=== PATIENT | female | born 1995 | race Caucasian/White ===

== ENCOUNTER → 2017-05-02 | Outpatient (CLI) | payer OTHER ==
[2017-05-04 01:27] LABS: CHLAMYDIA TRACH RNA*** NOT DETECTED (NOT DETECTED); GC (NEIS GONORRHOEAE)RNA** NOT DETECTED (NOT DETECTED)
== END | disposition home or self-care (01) ==
LOC: C.LABSPEC 11:24
PROVIDERS: ATTEND Physician Assistant
DX: Z01.419 Encounter for gynecological examination (general) (routine) without abnormal findings (principal)

== ENCOUNTER → 2017-05-02 | Outpatient (CLI) | payer OTHER | END | disposition home or self-care (01) | LOC: C.PAPS 11:11 | PROVIDERS: ATTEND Physician Assistant | DX: Z12.4 Encounter for screening for malignant neoplasm of cervix (principal) ==

== ENCOUNTER 2023-04-08 00:28 | Inpatient (IN) ==
[2023-04-08] MEDS ORDERED: LIDOCAINE 1% LOCAL 20 ML VIAL INFIL PRN (01:07)
[2023-04-08] MEDS ORDERED: OXYTOCIN 30 UNITS/500 ML BAG IV PRN ×3 (01:07→19:54)
[2023-04-08 01:25] LABS: Hematocrit (blood only) 38.5 % (37.0-47.0); Hemoglobin 12.9 g/dl (12.0-16.0); Mean Corpuscular Hemoglobin 29.8 pg (25.0-34.0); Mean Corpuscular Hgb Conc 33.5 g/dL (32.0-36.0); Mean Corpuscular Volume 88.9 fL (80.0-100.0); Platelet Count 161 K/uL (130-400); RDW Coefficient of Variation 12.4 % (11.5-14.5); RDW Standard Deviation 40.2 fL (36.4-46.3); Red Blood Count 4.33 M/uL (4.20-5.40); White Blood Count 14.81 K/ul (4.8-10.8)
--- NOTE | 2023-04-08 06:04 | History & Physical Report ---
Date of Service April 08, 2023 Assessment & Plan (1) 37 weeks gestation of : Plan: Patient was admitted overnight, routine labs Patient has made cervical change without any augmentation at this time Plan to start oxytocin if patient stalls out Epidural with patient request Anticipate spontaneous vaginal delivery (2) PROM (premature rupture of membranes): Plan: We will monitor for any signs or symptoms of infection, and treat accordingly (3) Depression affecting in third trimester, antepartum: Plan: We will continue to monitor at this time (4) Normal first confirmed, currently in third trimester: Admission and Anticipated Discharge Date Admission Date: April 08, 2023 History of Present Illness Chief Complaint: lof Primary Care Provider: NO PCP Patient is a 28-year-old G1, P0 at 37 weeks and 2 days dated by last menstrual period consistent with 7-week ultrasound who presented to labor and delivery overnight for premature rupture of membranes. States leaking of fluid happened at 10:15 PM on April 07, 2023. Notes scant bleeding. Denies regular contractions. Notes good movement. Denies headache, blurry vision, right upper quadrant epigastric pain. Otherwise feeling well has been complicated by class I obesity, depression and . No other complications Allergies Allergy/AdvReac Type Severity Reaction Status Date / Time Penicillins Allergy Unknown Rash Verified 04/08/23 00:50 Home Medications Medication Instructions Recorded Confirmed Type fluoxetine 40 mg capsule (Prozac) 40 mg PO DAILY 07/25/19 04/08/23 History Patient History Medical History Depression with anxiety Surgical History [place] teeth extracted Family History Father Left nephrolithiasis Family/Other Left nephrolithiasis Colorectal cancer maternal great grandmother Depression with anxiety sibling Grandmother (Paternal) Diabetes Mother Hypertension Denies family history of Ovarian cancer Breast cancer Social History Smoking Status: Never smoker Do You Dip or Chew Tobacco: No; Hx Alcohol Use: Yes Hx Substance Use: No Preferred Language: Maltese Communication Ability: Effective 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 Beliefs That Will Affect Care: None marital status: Current Living Situation: Spouse Other Information That Helps Us Care for You: No Feels Safe at Home: Yes Safety Concerns: Feels Safe At This Time OB History Primigravida PROSTHETIST History Denies history of STDs See record Physical Exam Constitutional: WD/WN, vitals as above Respiratory: normal respiratory effort, lungs clear to auscultation Cardiovascular: RRR, no murmur, no edema Gastrointestinal (Abdomen): normal bowel sounds, soft, nontender, no hepatosplenomegaly Gravid Jesse's estimated weight 3400 g Cephalic Genitourinary: Patient was grossly ruptured on exam and was checked by nursing and found to be 1 to 2 cm Rechecked at 6:10 AM and found to be 3/60/-1 Results & Data Vital Signs (Past 12 Hours) Vital Signs Temp Pulse Resp BP 04/08/23 03:04 36.8 C 103 H 18 108/69 04/08/23 00:59 36.7 C 98 H 18 130/76 Laboratory Results Laboratory Results WBC 14.81 K/ul (4.8-10.8) H 04/08/23 01:14 RBC 4.33 M/uL (4.20-5.40) 04/08/23 01:14 Hgb 12.9 g/dl (12.0-16.0) 04/08/23 01:14 Hct 38.5 % (37.0-47.0) 04/08/23 01:14 MCV 88.9 fL (80.0-100.0) 04/08/23 01:14 MCH 29.8 pg (25.0-34.0) 04/08/23 01:14 MCHC 33.5 g/dL (32.0-36.0) 04/08/23 01:14 RDW Std Deviation 40.2 fL (36.4-46.3) 04/08/23 01:14 RDW Coeff of Ramon 12.4 % (11.5-14.5) 04/08/23 01:14 Plt Count 161 K/uL (130-400) 04/08/23 01:14 MPV 12.0 fL (9.4-12.4) 04/08/23 01:14 Monitoring External Monitor heart tracing: Baseline 100 [place] variability, positive accelerations, no decelerations, category 1 tracing Tocodynamometer Irregular contractions
[2023-04-08] MEDS ORDERED: FLUoxetine HCL 20 MG CAP PO SCH (09:00)
[2023-04-08] MEDS: LACTATED RINGER'S 1,000 ML IV PRN ×2 (10:14→15:11)
--- NOTE | 2023-04-08 10:24 | Labor Progress Brief Note ---
Date of Service April 08, 2023 Assessment & Plan Admission and Anticipated Discharge Date Admission Date: April 08, 2023 Physical Exam Genitourinary: Manual OB Exam: + cervical dilation 3 cm, + cervical effacement 70%, + station -2 and + amniotic fluid clear OB Exam Monitor Tracing: + external FHT monitor used, + external uterine monitor used, + category I and + normal FHT variability will start Oxytocin to augment contractions EFW 7.5 lbs. Results & Data Vital Signs (Past 12 Hours) Vital Signs Temp Pulse Resp BP 04/08/23 07:11 20 04/08/23 07:10 36.9 C 93 H 114/75 04/08/23 10:14 90 120/74 04/08/23 08:51 36.9 C 04/08/23 07:08 93 H 114/75 04/08/23 03:04 36.8 C 103 H 18 108/69 04/08/23 00:59 36.7 C 98 H 18 130/76
[2023-04-08] MEDS ORDERED: fentaNYL citrate PF 100 MCG/2 ML VIAL ONE (12:16)
[2023-04-08] MEDS ORDERED: ePHEDrine sulfate 50 MG/ML AMP ONE (12:16)
[2023-04-08] MEDS ORDERED: SODIUM CHLORIDE 0.9% PF INJ 10 ML VIAL ONE (12:16)
[2023-04-08] MEDS ORDERED: fentaNYL 2MCG/ML ROPIVACAINE 1.25MG/ML 100 ML BAG EPI ONE (12:17)
[2023-04-08] MEDS ORDERED: LIDOCAINE 2%/EPINEPHRINE 1:200,000 20 ML PF ONE (12:17)
[2023-04-08] MEDS ORDERED: BUPIVACAINE 0.25% PF 30 ML VIAL ONE (12:17)
[2023-04-08] MEDS ORDERED: NALBUPHINE HCL INJ 10 MG/ML AMP IV PRN (12:43)
[2023-04-08] MEDS ORDERED: ROPIVACAINE 0.5% PF 5 MG/ML 20 ML VIAL EPI PRN (12:43)
[2023-04-08] MEDS ORDERED: BUPIVACAINE 0.25% PF 30 ML VIAL EPI STA (12:43)
[2023-04-08] MEDS ORDERED: fentaNYL citrate PF 100 MCG/2 ML VIAL EPI PRN (12:43)
[2023-04-08] MEDS ORDERED: fentaNYL citrate PF 100 MCG/2 ML VIAL EPI STA (12:43)
[2023-04-08] MEDS ORDERED: SODIUM CHLORIDE 0.9% PF INJ 10 ML VIAL EPI PRN (12:43)
[2023-04-08] MEDS ORDERED: LIDOCAINE 2%/EPINEPHRINE 1:200,000 20 ML PF EPI STA (12:43)
[2023-04-08] MEDS ORDERED: diphenhydrAMINE 50 MG/ML VIAL IV PRN (12:43)
[2023-04-08] MEDS ORDERED: LIDOCAINE 2% MPF LOCAL 5 ML VIAL EPI PRN (12:43)
[2023-04-08] MEDS ORDERED: NALOXONE HCL 0.4 MG/1 ML VIAL/CARP IV PRN (12:43)
[2023-04-08] MEDS ORDERED: ONDANSETRON INJ 2 MG/ML 2 ML VIAL IV PRN (12:43)
[2023-04-08] MEDS ORDERED: BUPIVACAINE 0.25% PF 30 ML VIAL EPI PRN (12:43)
[2023-04-08] MEDS ORDERED: fentaNYL 2MCG/ML ROPIVACAINE 1.25MG/ML 100 ML BAG EPI PRN (12:43)
[2023-04-08] MEDS ORDERED: SODIUM CHLORIDE 0.9% PF INJ 10 ML VIAL EPI STA (12:43)
[2023-04-08] MEDS ORDERED: ePHEDrine sulfate 50 MG/ML AMP IV PRN (12:43)
[2023-04-08] MEDS ORDERED: NALOXONE HCL 1 MG in SODIUM CHLORIDE 0.9% 1,000 ML IV PRN (12:43)
--- NOTE | 2023-04-08 12:45 | Anesthesiology Consultation ---
Date of Service April 08, 2023 Assessment & Plan Chart Review Chart Review: Acceptable Risk for Labor Epidural Consults Requested none ASA ASA2 Proposed Anesthesia Anesthesia Type: Labor Epidural Risk / Benefits Reviewed With: PT / POA / Parent / Guardian, Accepts Plan and Informed Consent Obtained History Height/Weight Height: 5 ft 7 in Weight: 97.069 kg Allergies Allergy/AdvReac Type Severity Reaction Status Date / Time Penicillins Allergy Unknown Rash Verified 04/08/23 00:50 Medications Home Medications Medication Instructions Recorded Confirmed Last Taken fluoxetine 40 mg capsule (Prozac) 40 mg PO DAILY 07/25/19 04/08/23 04/07/23 21:00 Active Medications Generic Name Dose Route Start Last Admin Trade Name Freq PRN Reason Stop Dose Admin Lactated Ringer's 1,000 mls @ 125 mls/hr 04/08/23 01:07 04/08/23 12:15 Lr IV 04/10/23 01:06 999 mls/hr .Q8H PRN Infusion L&D Protocol Protocol Oxytocin 30 units in 500 mls @ 7 mls/hr 04/08/23 10:22 04/08/23 12:15 Pitocin IV 04/10/23 10:21 0.42 units/hr .Q24H PRN 7 mls/hr Labor Induction/Augmentation Titration Protocol 0.42 UNITS/HR Past Medical History Medical History Depression with anxiety Exercise / Class Metabolic Activity II 4-5 Yardwork/Stairs/Walk up hill Past Family History Family History Father Left nephrolithiasis Family/Other Left nephrolithiasis Colorectal cancer maternal great grandmother Depression with anxiety sibling Grandmother (Paternal) Diabetes Mother Hypertension Denies family history of Ovarian cancer Breast cancer Past Surgical History Surgical History [place] teeth extracted Past Anesthesia History No Hx of Anesthesia Complications and No Family Hx of Anesthesia Complications History of PONV No Hx of PONV and No Hx of Motion Sickness Social History Smoking Status: Never smoker Do You Dip or Chew Tobacco: No Hx Alcohol Use: Yes Hx Substance Use: No Physical Exam Vital Signs Last Vital Signs Temp 98.4 F 04/08/23 12:30 Pulse 104 H 04/08/23 12:14 Resp 18 04/08/23 12:30 BP 120/78 04/08/23 12:14 ENMT Mouth: no dentition abnormality Thyromental Distance: > or= 3.5 Finger Breadths Mallampati Class: II Neck normal visual inspection Respiratory normal respiratory effort Auscultation: lungs clear to auscultation bilaterally Cardiovascular Rate/Rhythm: regular rate and regular rhythm Testing Laboratory Results 04/08/23 01:14
[2023-04-08] MEDS ORDERED: NURSING L&D Epidural Breakthrough Pain Update ONE (14:07)
--- NOTE | 2023-04-08 14:33 | Labor Progress Brief Note ---
Date of Service April 08, 2023 Assessment & Plan Admission and Anticipated Discharge Date Admission Date: April 08, 2023 Physical Exam Genitourinary: Manual OB Exam: + cervical dilation 3 cm, + cervical effacement 80% and + station -2 OB Exam Monitor Tracing: + external FHT monitor used, + external uterine monitor used, + category I and + normal FHT variability Results & Data Vital Signs (Past 12 Hours) Vital Signs Temp Pulse Resp BP Pulse Ox 04/08/23 07:11 20 04/08/23 07:10 36.9 C 93 H 114/75 04/08/23 14:31 82 124/64 04/08/23 14:27 94 H 100 04/08/23 14:22 99 H 99 04/08/23 14:17 97 H 100 04/08/23 14:16 95 H 121/64 04/08/23 14:12 85 100 04/08/23 14:07 89 100 04/08/23 14:02 102 H 125/76 97 04/08/23 14:01 88 122/75 04/08/23 13:57 87 100 04/08/23 13:52 90 99 04/08/23 13:47 95 H 100 04/08/23 13:46 83 118/70 04/08/23 13:42 88 99 04/08/23 13:37 87 97 04/08/23 13:32 89 97 04/08/23 13:30 18 04/08/23 13:30 18 04/08/23 13:28 91 H 122/67 04/08/23 13:25 20 04/08/23 13:25 20 04/08/23 13:27 85 98 04/08/23 13:23 89 122/62 04/08/23 13:22 93 H 97 04/08/23 13:20 16 04/08/23 13:20 16 04/08/23 13:19 88 120/70 04/08/23 13:17 88 99 04/08/23 13:15 18 04/08/23 13:15 36.9 C 18 04/08/23 13:13 88 113/63 04/08/23 13:12 88 109/62 98 04/08/23 13:10 93 H 18 107/59 L 04/08/23 13:08 95 H 109/65 04/08/23 13:06 98 04/08/23 13:06 99 H 04/08/23 13:00 18 04/08/23 13:00 18 04/08/23 13:05 20 04/08/23 13:05 20 04/08/23 13:06 82 110/62 04/08/23 13:04 90 110/65 04/08/23 13:01 93 H 98 04/08/23 13:02 90 113/63 04/08/23 12:56 94 H 97 04/08/23 12:51 121 H 100 04/08/23 12:46 113 H 18 100 04/08/23 12:30 18 04/08/23 12:30 36.9 C 18 04/08/23 12:14 104 H 120/78 04/08/23 11:02 36.9 C 04/08/23 11:12 100 H 123/70 04/08/23 08:51 36.9 C 04/08/23 10:14 90 120/74 04/08/23 08:51 36.9 C 04/08/23 07:08 93 H 114/75 04/08/23 03:04 36.8 C 103 H 18 108/69
[2023-04-08] MEDS ORDERED: Nursing to Pharmacy Communication SCH (14:45)
--- NOTE | 2023-04-08 18:20 | Labor Progress Brief Note ---
Date of Service April 08, 2023 Assessment & Plan Admission and Anticipated Discharge Date Admission Date: April 08, 2023 Physical Exam Genitourinary: Manual OB Exam: + cervical dilation 10 cm, + cervical effacement 100%, + station 0 and + amniotic fluid clear OB Exam Monitor Tracing: + external FHT monitor used, + external uterine monitor used, + category I and + normal FHT variability Results & Data Vital Signs (Past 12 Hours) Vital Signs Temp Pulse Resp BP Pulse Ox 04/08/23 07:11 20 04/08/23 07:10 36.9 C 93 H 114/75 04/08/23 18:17 114 H 100 04/08/23 18:16 107 H 120/72 04/08/23 18:12 104 H 100 04/08/23 18:07 103 H 100 04/08/23 18:05 110 H 92 04/08/23 18:02 108 H 99 04/08/23 18:01 113 H 148/72 H 04/08/23 18:00 18 04/08/23 18:00 18 04/08/23 17:57 101 H 95 04/08/23 17:52 103 H 98 04/08/23 17:47 105 H 98 04/08/23 17:46 105 H 121/75 04/08/23 17:42 99 H 97 04/08/23 17:37 36.9 C 105 H 96 04/08/23 17:38 114 H 93 04/08/23 17:30 18 04/08/23 17:30 18 04/08/23 17:32 104 H 97 04/08/23 17:31 106 H 122/75 04/08/23 17:27 113 H 96 04/08/23 17:22 109 H 96 04/08/23 17:17 94 H 97 04/08/23 17:16 100 H 119/71 04/08/23 17:12 109 H 97 04/08/23 17:07 100 H 96 04/08/23 17:02 106 H 99 04/08/23 17:01 89 127/74 04/08/23 17:00 16 04/08/23 17:00 16 04/08/23 16:57 112 H 98 04/08/23 16:52 101 H 98 04/08/23 16:47 99 H 98 04/08/23 16:46 100 H 120/70 04/08/23 16:42 95 H 98 04/08/23 16:40 36.9 C 04/08/23 16:37 95 H 98 04/08/23 16:32 96 H 100 04/08/23 16:31 111 H 114/57 L 04/08/23 16:30 18 04/08/23 16:30 18 04/08/23 16:27 91 H 100 04/08/23 16:22 95 H 99 04/08/23 16:17 91 H 96 04/08/23 16:16 104 H 128/62 04/08/23 16:12 100 H 100 04/08/23 16:07 98 H 99 04/08/23 16:02 87 125/65 100 04/08/23 16:01 106 H 129/67 04/08/23 16:00 18 04/08/23 16:00 18 04/08/23 15:57 89 100 04/08/23 15:54 92 H 92 04/08/23 15:52 96 H 100 04/08/23 15:47 96 H 100 04/08/23 15:42 80 100 04/08/23 15:37 89 100 04/08/23 15:32 88 100 04/08/23 15:31 42 L 04/08/23 15:31 125/60 04/08/23 15:31 100 H 111/62 04/08/23 15:30 18 04/08/23 15:30 18 04/08/23 15:27 88 100 04/08/23 15:22 93 H 100 04/08/23 15:17 94 H 100 04/08/23 15:16 88 110/59 L 04/08/23 15:12 93 H 100 04/08/23 15:07 85 100 04/08/23 15:02 93 H 119/59 L 100 04/08/23 15:00 18 04/08/23 15:00 36.9 C 18 04/08/23 14:57 87 100 04/08/23 14:52 89 100 04/08/23 14:47 88 100 04/08/23 14:46 87 124/64 04/08/23 14:42 89 99 04/08/23 14:37 105 H 99 04/08/23 14:30 20 04/08/23 14:30 20 04/08/23 14:32 86 100 04/08/23 14:31 82 124/64 04/08/23 14:27 94 H 100 04/08/23 14:22 99 H 99 04/08/23 14:17 97 H 100 04/08/23 14:16 95 H 121/64 04/08/23 14:12 85 100 04/08/23 14:07 89 100 04/08/23 14:02 102 H 125/76 97 04/08/23 14:01 88 122/75 04/08/23 13:57 87 100 04/08/23 13:52 90 99 04/08/23 13:47 95 H 100 04/08/23 13:46 83 118/70 04/08/23 13:42 88 99 04/08/23 13:37 87 97 04/08/23 13:32 89 97 04/08/23 13:30 18 04/08/23 13:30 18 04/08/23 13:28 91 H 122/67 04/08/23 13:25 20 04/08/23 13:25 20 04/08/23 13:27 85 98 04/08/23 13:23 89 122/62 04/08/23 13:22 93 H 97 04/08/23 13:20 16 04/08/23 13:20 16 04/08/23 13:19 88 120/70 04/08/23 13:17 88 99 04/08/23 13:15 18 04/08/23 13:15 36.9 C 18 04/08/23 13:13 88 113/63 04/08/23 13:12 88 109/62 98 04/08/23 13:10 93 H 18 107/59 L 04/08/23 13:08 95 H 109/65 04/08/23 13:06 98 04/08/23 13:06 99 H 04/08/23 13:00 18 04/08/23 13:00 18 04/08/23 13:05 20 04/08/23 13:05 20 04/08/23 13:06 82 110/62 04/08/23 13:04 90 110/65 04/08/23 13:01 93 H 98 04/08/23 13:02 90 113/63 04/08/23 12:56 94 H 97 04/08/23 12:51 121 H 100 04/08/23 12:46 113 H 18 100 04/08/23 12:30 18 04/08/23 12:30 36.9 C 18 04/08/23 12:14 104 H 120/78 04/08/23 11:02 36.9 C 04/08/23 11:12 100 H 123/70 04/08/23 08:51 36.9 C 04/08/23 10:14 90 120/74 04/08/23 08:51 36.9 C 04/08/23 07:08 93 H 114/75
--- NOTE | 2023-04-08 19:53 | Delivery Summary ---
Vaginal Delivery Summary Date of Service April 08, 2023 Vaginal Delivery Summary live male SEA over intact perineum with delayed cord clamping and Apgars were 8 and 9 weight pending. Cord blood obtained followed by placenta delivered spontaneously and intact. No tears. EBL 100 mL. Final sponge and instrument count were correct. Patient and baby stable.
[2023-04-08] MEDS ORDERED: DIPHTHERIA/TETANUS/PERTUSSIS Vaccine (Tdap, Age 7+yrs) 0.5mL SYR/VL IM ONE (19:54)
[2023-04-08] MEDS ORDERED: BENZOCAINE 20% SPRY 85 APPLN/85 GM CAN EXT PRN (19:54)
[2023-04-08] MEDS ORDERED: ACETAMINOPHEN 325 MG TAB PO PRN (19:54)
[2023-04-08] MEDS ORDERED: HYDROCORTISONE ACETATE 25 MG SUPP PR PRN (19:54)
[2023-04-08] MEDS ORDERED: bisacodyL 10 MG SUPP PR PRN (19:54)
[2023-04-08] MEDS: FLUoxetine HCL 20 MG CAP PO SCH (21:24)
[2023-04-08] MEDS: IBUPROFEN 600 MG TAB PO PRN (21:25)
[2023-04-08] MEDS: DOCUSATE SODIUM 100 MG CAP PO SCH (21:25)
--- NOTE | 2023-04-08 21:32 | Anesthesia Procedure Note ---
Date of Service April 08, 2023 Anesthesia Post Epidural Note Vital Signs Vital Signs: Temp Pulse Resp BP Pulse Ox 36.9 C 123 H 18 116/56 L 97 04/08/23 21:16 04/08/23 21:16 04/08/23 21:16 04/08/23 21:16 04/08/23 19:42 Pain Intensity Bilateral Abdomen: Pain Intensity: 0 Notes Mental Status: alert / awake / arousable Nausea / Vomiting: adequately controlled Pain: adequately controlled Airway Patency, RR, SpO2: stable & adequate BP & HR: stable & adequate Hydration State: stable & adequate Neuraxial Anesthesia: was administered and sensory block is resolving Anesthetic Complications: no major complications apparent and Pt Satisfied with anesthetic care Epidural: Removed without complications and With tip intact
[2023-04-09 06:15] LABS: Hematocrit (blood only) 34.7 % (37.0-47.0); Hemoglobin 11.7 g/dl (12.0-16.0); Mean Corpuscular Hemoglobin 29.6 pg (25.0-34.0); Mean Corpuscular Hgb Conc 33.7 g/dL (32.0-36.0); Mean Corpuscular Volume 87.8 fL (80.0-100.0); Mean Platelet Volume 12.2 fL (9.4-12.4); Platelet Count 151 K/uL (130-400); RDW Coefficient of Variation 12.4 % (11.5-14.5); RDW Standard Deviation 39.8 fL (36.4-46.3); Red Blood Count 3.95 M/uL (4.20-5.40); White Blood Count 17.86 K/ul (4.8-10.8)
[2023-04-09] MEDS: DOCUSATE SODIUM 100 MG CAP PO SCH ×2 (08:41→19:44)
[2023-04-09] MEDS: PRENATAL VITAMIN 1 TAB PO SCH (08:41)
[2023-04-09] MEDS: FERROUS SULFATE 325 MG TAB PO SCH (08:41)
[2023-04-09] MEDS: IBUPROFEN 600 MG TAB PO PRN ×2 (08:42→16:46)
--- NOTE | 2023-04-09 10:32 | Obstetrical Progress Note ---
Date of Service April 09, 2023 Assessment & Plan (1) Normal course: Pt doing well No complaints anticipate dich tomorrow Results & Data Vital Signs (Past 12 Hours) Vital Signs Temp Pulse Resp BP Pulse Ox O2 Del Method 04/09/23 08:00 36.8 C 91 H 16 106/68 99 Room Air 04/09/23 04:15 36.6 C 89 16 114/76 99 Room Air 04/09/23 01:00 36.6 C 91 H 18 105/68 98 Room Air
[2023-04-09] MEDS: FLUoxetine HCL 20 MG CAP PO SCH (19:44)
[2023-04-09] MEDS ORDERED: bisacodyL 5 MG TABEC PO SCH (20:00)
[2023-04-10 06:56] LABS: Hemoglobin 12.1 g/dl (12.0-16.0)
[2023-04-10] MEDS: DOCUSATE SODIUM 100 MG CAP PO SCH (08:25)
[2023-04-10] MEDS: PRENATAL VITAMIN 1 TAB PO SCH (08:25)
[2023-04-10] MEDS: IBUPROFEN 600 MG TAB PO PRN (08:25)
[2023-04-10] MEDS: FERROUS SULFATE 325 MG TAB PO SCH (08:25)
--- NOTE | 2023-04-10 09:58 | Obstetrical Progress Note ---
Date of Service April 10, 2023 Assessment & Plan Admission and Anticipated Discharge Date Admission Date: April 08, 2023 Subjective Patient is seen and examined. She feels well, no complaints. Ambulating without dizziness Voiding without difficulty Tolerating regular diet with out N&V Bleeding is minimal No fever/ chills/ CP/ SOB/ N&V/ Leg pain Breast feeding without problems Vital Signs Temp Pulse Resp BP Pulse Ox O2 Del Method 04/09/23 23:40 36.6 C 90 16 110/73 97 Room Air Vital Signs Temp Pulse Resp BP Pulse Ox O2 Del Method 04/09/23 23:40 36.6 C 90 16 110/73 97 Room Air 04/09/23 16:40 36.4 C L 106 H 20 108/71 97 Room Air 04/09/23 12:00 36.6 C 78 16 109/70 98 Room Air Lab Results 04/08/23 04/09/23 04/10/23 Range/Units 01:14 05:39 06:28 WBC 14.81 H 17.86 H (4.8-10.8) K/ul RBC 4.33 3.95 L (4.20-5.40) M/uL Hgb 12.9 11.7 L 12.1 (12.0-16.0) g/dl Hct 38.5 34.7 L 37.0 (37.0-47.0) % MCV 88.9 87.8 (80.0-100.0) fL MCH 29.8 29.6 (25.0-34.0) pg MCHC 33.5 33.7 (32.0-36.0) g/dL RDW Std Deviation 40.2 39.8 (36.4-46.3) fL RDW Coeff of Ramon 12.4 12.4 (11.5-14.5) % Plt Count 161 151 (130-400) K/uL MPV 12.0 12.2 (9.4-12.4) fL PE: General: Alert, orientedx3, NAD Abd: soft, NT, fundus firm, below Umbilicus Perineum intact, Lochia rubra minimal Ext; NT, no edema AP: 28 yo s/p , ppd# 2 VSS Afebrile doing well Continue routine care Repeat CBC for WBCC All questions were answered D/C home , f/u in office Results & Data Vital Signs (Past 12 Hours) Vital Signs Temp Pulse Resp BP Pulse Ox O2 Del Method 04/09/23 23:40 36.6 C 90 16 110/73 97 Room Air
[2023-04-10 10:19] LABS: Basophils # (auto) 0.05 K/uL (0.00-0.20); Basophils % (auto) 0.4 %; Eosinophils # (auto) 0.21 K/uL (0.00-0.50); Eosinophils % (auto) 1.8 %; Immature Granulocytes # (auto) 0.11 K/uL (0.01-0.20); Immature Granulocytes % (auto) 0.9 %; Lymphocytes # (auto) 2.03 K/uL (1.20-3.40); Lymphocytes % (auto) 17.3 %; Mean Corpuscular Hemoglobin 29.6 pg (25.0-34.0); Mean Platelet Volume 12.7 fL (9.4-12.4); Monocytes # (auto) 0.94 K/uL (0.11-0.59); Neutrophils # (auto) 8.38 K/uL (1.40-6.50); Neutrophils % (auto) 71.6 %; Platelet Count 151 K/uL (130-400); RDW Coefficient of Variation 12.7 % (11.5-14.5); RDW Standard Deviation 41.7 fL (36.4-46.3); Red Blood Count 4.06 M/uL (4.20-5.40); White Blood Count 11.72 K/ul (4.8-10.8)
[2023-04-10 14:16] LABS: Mean Corpuscular Hgb Conc 32.7 g/dL (32.0-36.0); Mean Corpuscular Volume 90.7 fL (80.0-100.0)
== END 2023-04-10 12:30 | disposition home or self-care (01) | DRG 807 ==
LOC: OPB 00:28 → 4S1 00:35 → 4E2 22:01